=== PATIENT | female | born 1970 ===

== ENCOUNTER 2024-05-03 19:24 | Emergency (ER) | payer OTHER, SELFPAY ==
[2024-05-03 19:27] VITALS: BP 175/97; PULSE 75; RESP 17; TEMP 36.8; O2SAT 97; BMI 45.5
--- NOTE | 2024-05-03 19:31 | DI.RAD.S_ITS ---
PROCEDURE: XR ELBOW LT MIN 3V INDICATIONS: FOOSH TECHNIQUE: 3 views of the elbow were acquired. COMPARISON: None. FINDINGS: Bones: No acute displaced fracture or dislocation. Possible enthesopathy at the humeral epicondyles. Soft tissues: No significant effusion. IMPRESSION: No acute osseous abnormality or significant joint effusion. If there is high concern for occult injury, consider repeat radiography or cross-sectional imaging. Dictated by: Gab Ren M.D. on 05/03/2024 at 20:01 Approved by: Gab Ren M.D. on 05/03/2024 at 20:02
--- NOTE | 2024-05-03 19:31 | DI.RAD.S_ITS ---
PROCEDURE: XR WRIST LT MIN 3V INDICATIONS: FOOSH TECHNIQUE: 4 views of the wrist were acquired. COMPARISON: None. FINDINGS: Bones: No acute fractures or dislocations. No suspicious bony lesions. Mild 1st carpometacarpal joint osteoarthrosis. Soft tissues: No suspicious soft tissue calcifications. IMPRESSION: No acute osseous abnormality. If there is continued clinical concern or persistent symptoms, repeat radiographs or cross-sectional imaging (e.g. CT, MRI) may be helpful for further evaluation. Approved by: Jesse Shaw M.D. on 05/03/2024 at 20:01
[2024-05-03 22:29] VITALS: PULSE 64; O2SAT 96
[2024-05-03 22:30] VITALS: PULSE 63; O2SAT 98
[2024-05-03 22:31] VITALS: BP 186/90; PULSE 69; RESP 17; O2SAT 98
--- NOTE | 2024-05-03 22:46 | ED.FALL ---
HPI - Fall General Chief Complaint: Fall Stated Complaint: abbreviated fall over retaining wall Time Seen by Provider: 05/03/24 22:20 Source: patient Mode of arrival: Ambulatory History of Present Illness HPI Narrative: Patient is a 53-year-old female here for evaluation of injuries that she sustained when she states that she tripped over a hitch on a trailer. She states her foot slipped under the trailer. States she tried to catch herself to avoid falling. Had a twisting injury. Landed on her left arm. Has pain and left arm as well as generalized soreness. Did not hit her head. No loss of consciousness. Not on anticoagulation. Is ambulatory. Related Data Home Medications Medication Instructions Recorded Confirmed MULTIVITAMIN (Multivitamin 1 cap PO EVERY DAY ##0 06/29/08 -) [SUDAFED] ##0 06/29/08 Previous Rx's Medication Instructions Recorded cyclobenzaprine 10 mg tablet 10 mg PO TIDP PRN #15 tabs 11/21/16 ibuprofen 600 mg tablet 600 mg PO Q8HP PRN #20 tabs 11/21/16 Allergies Allergy/AdvReac Type Severity Reaction Status Date / Time Penicillins [PENICILLINS] Allergy Unknown Anaphylaxis Verified 05/03/24 19:27 Review of Systems Review of Systems Narrative: See HPI Patient History Social History Smoking Status: Never smoker Smoking Status: Never smoker alcohol intake frequency: holidays/special occasions only Substance Use Type: marijuana Exam Initial Vital Signs Initial Vital Signs: Vital Signs Temperature 98.3 F 05/03/24 19:27 Pulse Rate 75 05/03/24 19:27 Respiratory Rate 17 05/03/24 19:27 Blood Pressure 175/97 H 05/03/24 19:27 Pulse Oximetry 97 05/03/24 19:27 Oxygen Delivery Method Room Air 05/03/24 19:27 Const General: cooperative, comfortable and No ill appearing Skin General: no rashes or lesions noted Extrem Other: No gross deformities. Left shoulder left elbow unremarkable. Some discomfort with the left forearm but can pronate and supinate and flex extend the left wrist. Lower extremities unremarkable. Course Orders Ordered: Discontinued Medications Cyclobenzaprine HCl (Cyclobenzaprine 10 Mg Prepack) 1 bottle MISC DIRECTED ONE Stop: 05/03/24 22:48 Last Admin: 05/03/24 22:57 Dose: 1 bottle Documented By: IMTIAZ Ketorolac Tromethamine (Ketorolac 30 Mg/Ml Vial) 30 mg IM NOW ONE Stop: 05/03/24 22:48 Last Admin: 05/03/24 22:57 Dose: 30 mg Documented By: IMTIAZ Vital Signs Vital signs: Vital Signs - 8 hr 05/03/24 22:29 05/03/24 22:30 05/03/24 22:31 Pulse Rate 64 63 Respiratory Rate Blood Pressure 186/90 H Pulse Oximetry 96 98 Oxygen Delivery Method 05/03/24 22:31 Pulse Rate 69 Respiratory Rate 17 Blood Pressure Pulse Oximetry 98 Oxygen Delivery Method Room Air MDM - Fall Imaging Data Extremity x-ray #1: Radiologist's Impression: PROCEDURE: XR ELBOW LT MIN 3V INDICATIONS: FOOSH TECHNIQUE: 3 views of the elbow were acquired. COMPARISON: None. FINDINGS: Bones: No acute displaced fracture or dislocation. Possible enthesopathy at the humeral epicondyles. Soft tissues: No significant effusion. IMPRESSION: No acute osseous abnormality or significant joint effusion. If there is high concern for occult injury, consider repeat radiography or cross-sectional imaging. Extremity x-ray #2: Radiologist's Impression: PROCEDURE: XR WRIST LT MIN 3V INDICATIONS: FOOSH TECHNIQUE: 4 views of the wrist were acquired. COMPARISON: None. FINDINGS: Bones: No acute fractures or dislocations. No suspicious bony lesions. Mild 1st carpometacarpal joint osteoarthrosis. Soft tissues: No suspicious soft tissue calcifications. IMPRESSION: No acute osseous abnormality. If there is continued clinical concern or persistent symptoms, repeat radiographs or cross-sectional imaging (e.g. CT, MRI) may be helpful for further evaluation. [facility] Narrative Medical decision making narrative: No fractures or dislocations noted on the x-rays. Patient is ambulatory. No indication for head CT or cervical spine CT. Suspect her symptoms will improve in the next couple days with conservative measures. Discussed this with her. We discussed return precautions. She expressed understanding and agreement. Discharge Plan Departure Patient Disposition: Home Clinical Impression: Muscle strain Instructions: DI for Muscle Strain Activity Restrictions/Additional Instructions: Recommend that you continue with conservative measures such as heat/ice and also light stretching. Anti-inflammatories such as Motrin/Naprosyn can be helpful. Return to the emergency department for new symptoms. Prescriptions: No Action MULTIVITAMIN (Multivitamin -) 1 cap PO EVERY DAY Qty: 0 [SUDAFED] Qty: 0 cyclobenzaprine 10 MG tablet 10 mg PO TIDP PRNQty: 15 0RF ibuprofen 600 MG tablet 600 mg PO Q8HP PRNQty: 20 0RF Stand Alone Forms: Patient Portal/API/Survey, Work Release Note
[2024-05-03] MEDS: CYCLOBENZAPRINE 10 MG PREPACK 1 BOTTLE MISC (22:57)
[2024-05-03] MEDS: KETOROLAC 30 MG/ML VIAL IM (22:57)
== END 2024-05-03 23:07 | disposition home or self-care (01) ==
PROVIDERS: Emergency Provider Emergency Medicine
DX: S46.912A Strain of unspecified muscle, fascia and tendon at shoulder and upper arm level, left arm, initial encounter (principal); W01.0XXA Fall on same level from slipping, tripping and stumbling without subsequent striking against object, initial encounter
CPT/HCPCS: 73080; 73110; 96372; 99283; J1885